=== PATIENT | male | born 1935 | race African-American/Black ===

== ENCOUNTER 2019-06-14 09:43 | Inpatient (IN) ==
[2019-06-14] MEDS ORDERED: ASPIRIN 325 MG TABLET PO STA (10:14)
[2019-06-14] MEDS ORDERED: NITROGLYCERIN SL 0.4 MG TABLET SL PRN ×2 (10:14→13:50)
[2019-06-14 10:51] LABS: Basophils % 0.2 % (0.0-0.8); Eosinophils # 0.1 10*3/uL (0.0-0.87); Eosinophils % 0.9 % (0.00-10.9); Hematocrit 52.4 VOL% (42.0-52.0); Hemoglobin 16.3 GM/DL (14.0-18.0); Immature Granulocytes % 0.4 %; Immature Granulocytes Absolute 0.05 #; Lymphocytes # 1.7 10*3/uL (1.4-4.0); Lymphocytes % 13.6 % (21.2-54.2); Mean Corpuscular HGB Conc 31.1 GM/DL (32-36); Mean Corpuscular Volume 92.7 FL (87-102); Monocytes % 10.9 % (1.7-12.7); Red Blood Count 5.65 MC/CUMM (3.8-5.5); Red Cell Distribution Width 13.7 % (9.3-17.3); White Blood Count 12.6 T/CUMM (4-12)
[2019-06-14 10:52] LABS: Platelet Count 91 T/CUMM (130-400)
[2019-06-14 11:05] LABS: Calcium 9.1 MG/DL (8.5-10.1); Osmolality,Calculated 282.7 MOS/KG (273-304)
[2019-06-14 11:16] LABS: Alanine Aminotransferase 32 U/L (16-61); Albumin 3.7 G/DL (3.4-5.0); Alkaline Phosphatase 98 U/L (45-117); Aspartate Amino Transferase 34 U/L (0-37); Bilirubin,Indirect 0.4 MG/DL (0.0-1.0); Total Protein 8.5 G/DL (6.4-8.3); Uric Acid 4.8 MG/DL (3.5-7.2)
[2019-06-14 11:31] LABS: Hypochromasia 1+; Microcytosis Slight; Platelet Estimate Decreased
[2019-06-14] MEDS ORDERED: GLUCAGON 1 MG VIAL IM PRN (14:35)
[2019-06-14] MEDS ORDERED: DEXTROSE 10% 250 ML BAG IV PRN (14:35)
[2019-06-14] MEDS ORDERED: INFLUENZA VIRUS VACCINE 0.5 ML SYRINGE IM ONE (16:04)
[2019-06-14] MEDS ORDERED: LINACLOTIDE 145 MCG CAPSULE PO SCH (16:30)
[2019-06-14] MEDS: INSULIN REGULAR 100 UNIT/ML SUBCUT SCH ×2 (16:41→21:01)
[2019-06-14] MEDS: ENOXAPARIN 80 MG/0.8 ML SYRINGE SUBCUT SCH (16:52)
[2019-06-14] MEDS ORDERED: SIMETHICONE CHEW 125 MG TABLET PO PRN (18:27)
[2019-06-14] MEDS ORDERED: ZALEPLON 5 MG CAPSULE PO PRN (18:27)
[2019-06-14] MEDS ORDERED: hydrALAZINE 20 MG/1 ML VIAL IV PRN (18:27)
[2019-06-14] MEDS ORDERED: ACETAMINOPHEN 325 MG TABLET PO PRN (18:27)
[2019-06-14] MEDS ORDERED: BISACODYL 5 MG TABLET PO PRN (18:27)
[2019-06-14] MEDS ORDERED: CALCIUM CARBONATE CHEW 500 MG TABLET PO PRN (18:27)
[2019-06-14] MEDS ORDERED: ONDANSETRON 4 MG/2 ML VIAL IV PRN (18:27)
[2019-06-14] MEDS ORDERED: LACTULOSE 20 GM/30 ML UDCUP PO PRN (18:27)
[2019-06-14] MEDS ORDERED: ALUMINUM/MAGNES/SIMETH MAX STR 30 ML UDCUP PO PRN (18:27)
[2019-06-14] MEDS ORDERED: traZODone 50 MG TABLET PO PRN (18:27)
[2019-06-14] MEDS: cilostazoL 100 MG TABLET PO SCH (21:00)
[2019-06-14] MEDS ORDERED: INSULIN GLARGINE 100 UNIT/ML SUBCUT SCH (21:00)
[2019-06-14] MEDS ORDERED: ROSUVASTATIN 20 MG TABLET PO SCH (21:00)
[2019-06-14] MEDS: DOCUSATE SODIUM 100 MG CAPSULE PO SCH (21:01)
[2019-06-14] MEDS: carvediloL 25 MG TABLET PO SCH (21:01)
[2019-06-14] MEDS: MORPHINE 4 MG/1 ML VIAL IV PRN (21:01)
[2019-06-15] MEDS: ENOXAPARIN 80 MG/0.8 ML SYRINGE SUBCUT SCH (03:09)
[2019-06-15] MEDS: MORPHINE 4 MG/1 ML VIAL IV PRN (04:23)
[2019-06-15 04:38] LABS: Amorphous Crystals,Urine Occasional /HPF (Few); Apearance,Urine CLEAR (Clear); Bacteria,Urine Occasional /HPF (Few); Bilirubin,Urine Negative (Negative); Blood, Urine Negative (Negative); Glucose,Urine (UA) 150 mg/dL (Negative); Ketones,Urine Negative (Negative); Mucus,Urine Occasional /LPF (Occasional); Nitrite,Urine Negative (Negative); Protein,Urine 100 MG/DL; RBC,Urine 1 /HPF (0-4); Squamous Epithelial Cell,Urine Occasional /HPF (0-10); Urine Color Yellow (Yellow); Urine Specific Gravity 1.021 (1.001-1.035); WBC,Urine 1 /HPF (0-6)
[2019-06-15 05:33] LABS: Basophils % 0.5 % (0.0-0.8); Eosinophils # 0.2 10*3/uL (0.0-0.87); Eosinophils % 3.4 % (0.00-10.9); Hematocrit 42.5 VOL% (42.0-52.0); Immature Granulocytes % 0.3 %; Immature Granulocytes Absolute 0.02 #; Lymphocytes # 0.9 10*3/uL (1.4-4.0); Lymphocytes % 14.5 % (21.2-54.2); Mean Corpuscular HGB Conc 32.5 GM/DL (32-36); Mean Corpuscular Volume 90.2 FL (87-102); Mean Platelet Volume 12.4 FL (9.6-12.0); Monocytes % 13.8 % (1.7-12.7); Neutrophils % 67.5 % (38.7-73.9); Red Blood Count 4.71 MC/CUMM (3.8-5.5); Red Cell Distribution Width 13.7 % (9.3-17.3)
[2019-06-15 05:34] LABS: Hemoglobin 13.8 GM/DL (14.0-18.0); White Blood Count 5.9 T/CUMM (4-12)
[2019-06-15 05:35] LABS: Platelet Count 66 T/CUMM (130-400)
[2019-06-15 05:52] LABS: Bilirubin,Total 1.1 MG/DL (0.2-1.0); Calcium 8.5 MG/DL (8.5-10.1); Osmolality,Calculated 283.7 MOS/KG (273-304); Risk Ratio 1.97; Thyroid Stimulating Hormone 3.59 uIU/ml (0.358-3.74); Total Protein 6.7 G/DL (6.4-8.3); VLDL CHOLESTEROL 12.6 MG/DL
[2019-06-15 06:46] LABS: Hypochromasia 1+; Microcytosis Slight; Platelet Estimate Decreased
[2019-06-15] MEDS ORDERED: PANTOPRAZOLE 40 MG TABLET PO SCH (09:00)
[2019-06-15] MEDS ORDERED: amLODIPine 5 MG TABLET PO SCH (09:00)
[2019-06-15] MEDS ORDERED: ASPIRIN 325 MG TABLET PO SCH (09:00)
[2019-06-15] MEDS ORDERED: CLOPIDOGREL 75 MG TABLET PO SCH (09:00)
[2019-06-15] MEDS: INSULIN REGULAR 100 UNIT/ML SUBCUT SCH ×2 (09:10→12:32)
[2019-06-15] MEDS: cilostazoL 100 MG TABLET PO SCH (09:12)
[2019-06-15] MEDS: carvediloL 25 MG TABLET PO SCH (09:13)
[2019-06-15] MEDS: DOCUSATE SODIUM 100 MG CAPSULE PO SCH (09:14)
[2019-06-15 12:03] VITALS: BP 122/68
[2019-06-15] MEDS ORDERED: APIXABAN 5 MG TABLET PO SCH (21:00)
== END 2019-06-15 12:38 | disposition home health service (06) | DRG 563 ==
LOC: N.ED 09:43 → N.EDINP 14:34 → N.3E 15:30
PROVIDERS: ADMIT Internal Medicine; ATTEND Internal Medicine

== ENCOUNTER 2021-10-14 12:32 | Inpatient (IN) ==
[2021-10-14 15:01] LABS: Basophils % 0.4 % (0.0-0.8); Eosinophils # 0.2 10*3/uL (0.0-0.87); Eosinophils % 3.1 % (0.00-10.9); Hematocrit 58.9 VOL% (42.0-52.0); Hemoglobin 18.8 GM/DL (14.0-18.0); Immature Granulocytes % 0.4 %; Immature Granulocytes Absolute 0.02 #; Lymphocytes # 1.6 10*3/uL (1.4-4.0); Lymphocytes % 29.4 % (21.2-54.2); Mean Corpuscular HGB Conc 31.9 GM/DL (32-36); Mean Corpuscular Volume 88.6 FL (87-102); Mean Platelet Volume 12.2 FL (9.6-12.0); Monocytes # 0.9 10*3/uL (0.11-0.8); Monocytes % 15.7 % (1.7-12.7); Platelet Count 123 T/CUMM (130-400); Red Blood Count 6.65 MC/CUMM (3.8-5.5); Red Cell Distribution Width 14.1 % (9.3-17.3); White Blood Count 5.4 T/CUMM (4-12)
[2021-10-14 15:16] LABS: Mucus,Urine Occasional /LPF (Occasional); RBC,Urine 1 /HPF (0-4); Squamous Epithelial Cell,Urine Occasional /HPF (0-10); Urine Appearance Clear (Clear); Urine Color Yellow (Yellow)
[2021-10-14 15:17] LABS: Glucose,Urine (UA) 250 mg/dL (Negative); Ketones,Urine 15 mg/dL (Negative); Nitrite,Urine Negative (Negative); Protein,Urine >=300 mg/dL (Negative); Urine Specific Gravity 1.028 (1.001-1.035)
[2021-10-14 15:21] LABS: Bilirubin,Urine Small mg/dL (Negative); Blood, Urine Trace mg/dL (Negative)
[2021-10-14] MEDS ORDERED: ONDANSETRON 4 MG/2 ML VIAL IV STA (15:24)
[2021-10-14] MEDS ORDERED: SODIUM CHLORIDE 0.9% 1,000 ML IV STA (15:24)
[2021-10-14 15:28] LABS: Albumin 3.4 G/DL (3.4-5.0); Calcium 9.7 MG/DL (8.5-10.1); Osmolality,Calculated 277.1 MOS/KG (273-304); Potassium 4.9 MMOL/L (3.5-5.1)
[2021-10-14] MEDS ORDERED: AZITHROMYCIN INJ 500 MG in SODIUM CHLORIDE 0.9% 250 ML IV STA (16:19)
[2021-10-14] MEDS ORDERED: MELATONIN 3 MG TABLET PO PRN (17:04)
[2021-10-14] MEDS ORDERED: DOCUSATE SODIUM 100 MG CAPSULE PO PRN (17:06)
[2021-10-14] MEDS ORDERED: ACETAMINOPHEN 325 MG TABLET PO PRN (17:06)
[2021-10-14] MEDS ORDERED: GLUCAGON 1 MG VIAL IM PRN (17:06)
[2021-10-14] MEDS ORDERED: DEXTROSE 10% 250 ML BAG IV PRN (17:12)
[2021-10-14] MEDS: SODIUM CHLORIDE 0.9% 1,000 ML IV SCH (18:07)
[2021-10-14 18:54] LABS: PT Patient Result 10.9 SECS (10.5-12.0)
[2021-10-14] MEDS: ASCORBIC ACID 500 MG TABLET PO SCH (21:14)
[2021-10-14] MEDS: FAMOTIDINE 20 MG TABLET PO SCH (21:15)
[2021-10-14] MEDS: INSULIN REGULAR 100 UNIT/ML SUBCUT SCH (21:46)
[2021-10-15 05:18] LABS: Basophils % 0.2 % (0.0-0.8); Eosinophils # 0.2 10*3/uL (0.0-0.87); Hematocrit 48.9 VOL% (42.0-52.0); Hemoglobin 15.6 GM/DL (14.0-18.0); Immature Granulocytes % 0.2 %; Immature Granulocytes Absolute 0.01 #; Lymphocytes # 1.3 10*3/uL (1.4-4.0); Lymphocytes % 30.4 % (21.2-54.2); Mean Corpuscular HGB Conc 31.9 GM/DL (32-36); Mean Corpuscular Volume 88.7 FL (87-102); Mean Platelet Volume 11.8 FL (9.6-12.0); Monocytes # 0.6 10*3/uL (0.11-0.8); Monocytes % 13.9 % (1.7-12.7); Neutrophils % 50.3 % (38.7-73.9); Platelet Count 112 T/CUMM (130-400); Red Blood Count 5.51 MC/CUMM (3.8-5.5); Red Cell Distribution Width 13.3 % (9.3-17.3); White Blood Count 4.4 T/CUMM (4-12)
[2021-10-15 05:43] LABS: Albumin 2.6 G/DL (3.4-5.0); Bilirubin,Total 0.7 MG/DL (0.20-1.00); Calcium 8.3 MG/DL (8.5-10.1); Ferritin 196.4 ng/mL (26-388); Osmolality,Calculated 289.1 MOS/KG (273-304); Potassium 4.4 MMOL/L (3.5-5.1); Total Protein 6.8 G/DL (6.4-8.2)
[2021-10-15 05:50] LABS: Thyroid Stimulating Hormone 1.47 uIU/ml (0.358-3.74)
[2021-10-15] MEDS: SODIUM CHLORIDE 0.9% 1,000 ML IV SCH ×3 (06:00→22:34)
[2021-10-15 06:35] LABS: Sedimentation Rate-Westergren 16 MM/HR (0-20)
[2021-10-15] MEDS ORDERED: REMDESIVIR 100 MG in SODIUM CHLORIDE 0.9% 100 ML IV SCH (08:30)
[2021-10-15] MEDS ORDERED: REMDESIVIR 200 MG in SODIUM CHLORIDE 0.9% 210 ML IV ONE (09:00)
[2021-10-15] MEDS: AZITHROMYCIN 250 MG TABLET PO SCH (09:11)
[2021-10-15] MEDS: ASCORBIC ACID 500 MG TABLET PO SCH ×2 (09:12→22:28)
[2021-10-15] MEDS: CHOLECALCIFEROL 1,000 UNIT TABLET PO SCH (09:12)
[2021-10-15] MEDS: ZINC GLUCONATE 50 MG TABLET PO SCH (09:12)
[2021-10-15] MEDS: FAMOTIDINE 20 MG TABLET PO SCH ×2 (09:12→22:25)
[2021-10-15] MEDS: INSULIN REGULAR 100 UNIT/ML SUBCUT SCH ×4 (09:14→22:26)
[2021-10-15] MEDS ORDERED: GABAPENTIN 300 MG CAPSULE PO PRN (11:39)
[2021-10-15] MEDS: LINACLOTIDE 145 MCG CAPSULE PO SCH (17:25)
[2021-10-15] MEDS: carvediloL 25 MG TABLET PO SCH (22:25)
[2021-10-15] MEDS: ROSUVASTATIN 20 MG TABLET PO SCH (22:26)
[2021-10-16 05:29] LABS: Basophils % 0.4 % (0.0-0.8); Eosinophils # 0.3 10*3/uL (0.0-0.87); Eosinophils % 5.7 % (0.00-10.9); Hematocrit 48.3 VOL% (42.0-52.0); Hemoglobin 15.5 GM/DL (14.0-18.0); Immature Granulocytes % 0.4 %; Immature Granulocytes Absolute 0.02 #; Lymphocytes # 1.2 10*3/uL (1.4-4.0); Lymphocytes % 24.6 % (21.2-54.2); Mean Corpuscular HGB Conc 32.1 GM/DL (32-36); Mean Platelet Volume 11.6 FL (9.6-12.0); Monocytes # 0.7 10*3/uL (0.11-0.8); Monocytes % 14.3 % (1.7-12.7); Neutrophils % 54.6 % (38.7-73.9); Platelet Count 118 T/CUMM (130-400); Red Blood Count 5.49 MC/CUMM (3.8-5.5); Red Cell Distribution Width 13.2 % (9.3-17.3)
[2021-10-16 05:55] LABS: Albumin 2.5 G/DL (3.4-5.0); Bilirubin,Total 0.6 MG/DL (0.20-1.00); Calcium 8.2 MG/DL (8.5-10.1); Ferritin 181.4 ng/mL (26-388); Osmolality,Calculated 285.3 MOS/KG (273-304); Potassium 4.3 MMOL/L (3.5-5.1); Total Protein 6.5 G/DL (6.4-8.2)
[2021-10-16 06:46] LABS: Sedimentation Rate-Westergren 16 MM/HR (0-20)
[2021-10-16] MEDS: INSULIN REGULAR 100 UNIT/ML SUBCUT SCH ×4 (09:46→21:59)
[2021-10-16] MEDS: ZINC GLUCONATE 50 MG TABLET PO SCH (09:47)
[2021-10-16] MEDS: FAMOTIDINE 20 MG TABLET PO SCH ×2 (09:47→21:41)
[2021-10-16] MEDS: DAPAGLIFLOZIN 5 MG TABLET PO SCH (09:47)
[2021-10-16] MEDS: carvediloL 25 MG TABLET PO SCH ×2 (09:47→21:41)
[2021-10-16] MEDS: CHOLECALCIFEROL 1,000 UNIT TABLET PO SCH (09:47)
[2021-10-16] MEDS: amLODIPine 10 MG TABLET PO SCH (09:47)
[2021-10-16] MEDS: REMDESIVIR 100 MG in SODIUM CHLORIDE 0.9% 100 ML IV SCH (09:48)
[2021-10-16] MEDS: ASCORBIC ACID 500 MG TABLET PO SCH ×2 (09:48→21:41)
[2021-10-16] MEDS: AZITHROMYCIN 250 MG TABLET PO SCH (09:48)
[2021-10-16] MEDS: SODIUM CHLORIDE 0.9% 1,000 ML IV SCH (10:58)
[2021-10-16] MEDS: LINACLOTIDE 145 MCG CAPSULE PO SCH (17:11)
[2021-10-16] MEDS: ROSUVASTATIN 20 MG TABLET PO SCH (21:41)
[2021-10-17 05:22] LABS: Basophils % 0.3 % (0.0-0.8); Eosinophils # 0.3 10*3/uL (0.0-0.87); Eosinophils % 5.6 % (0.00-10.9); Hematocrit 51.7 VOL% (42.0-52.0); Hemoglobin 16.2 GM/DL (14.0-18.0); Immature Granulocytes % 0.3 %; Immature Granulocytes Absolute 0.02 #; Lymphocytes # 1.2 10*3/uL (1.4-4.0); Lymphocytes % 20.5 % (21.2-54.2); Mean Corpuscular HGB Conc 31.3 GM/DL (32-36); Mean Corpuscular Volume 87.6 FL (87-102); Mean Platelet Volume 11.8 FL (9.6-12.0); Monocytes # 0.9 10*3/uL (0.11-0.8); Monocytes % 15.2 % (1.7-12.7); Neutrophils % 58.1 % (38.7-73.9); Platelet Count 133 T/CUMM (130-400); Red Cell Distribution Width 13.2 % (9.3-17.3)
[2021-10-17 05:37] LABS: Calcium 9.1 MG/DL (8.5-10.1); Osmolality,Calculated 276.5 MOS/KG (273-304); Potassium 4.2 MMOL/L (3.5-5.1)
[2021-10-17] MEDS: SODIUM CHLORIDE 0.9% 1,000 ML IV SCH (06:05)
[2021-10-17] MEDS: INSULIN REGULAR 100 UNIT/ML SUBCUT SCH ×4 (07:07→21:47)
[2021-10-17] MEDS: FAMOTIDINE 20 MG TABLET PO SCH ×2 (09:52→21:47)
[2021-10-17] MEDS: ZINC GLUCONATE 50 MG TABLET PO SCH (09:52)
[2021-10-17] MEDS: amLODIPine 10 MG TABLET PO SCH (09:52)
[2021-10-17] MEDS: ASCORBIC ACID 500 MG TABLET PO SCH ×2 (09:52→21:46)
[2021-10-17] MEDS: DAPAGLIFLOZIN 5 MG TABLET PO SCH (09:53)
[2021-10-17] MEDS: AZITHROMYCIN 250 MG TABLET PO SCH (09:53)
[2021-10-17] MEDS: carvediloL 25 MG TABLET PO SCH ×2 (09:53→21:47)
[2021-10-17] MEDS: CHOLECALCIFEROL 1,000 UNIT TABLET PO SCH (09:53)
[2021-10-17] MEDS: REMDESIVIR 100 MG in SODIUM CHLORIDE 0.9% 100 ML IV SCH (09:57)
[2021-10-17] MEDS ORDERED: MAGNESIUM SULF RIDER 2 GM/50 ML PREMIX IV PRN (15:36)
[2021-10-17] MEDS ORDERED: MAGNESIUM SULF RIDER 4 GM/100 ML PREMIX IV PRN (15:36)
[2021-10-17] MEDS: LINACLOTIDE 145 MCG CAPSULE PO SCH (17:18)
[2021-10-17] MEDS: ROSUVASTATIN 20 MG TABLET PO SCH (21:47)
[2021-10-18 06:28] LABS: Basophils % 0.5 % (0.0-0.8); Eosinophils # 0.3 10*3/uL (0.0-0.87); Eosinophils % 5.3 % (0.00-10.9); Hematocrit 51.6 VOL% (42.0-52.0); Hemoglobin 16.9 GM/DL (14.0-18.0); Immature Granulocytes % 0.5 %; Immature Granulocytes Absolute 0.03 #; Lymphocytes # 1.2 10*3/uL (1.4-4.0); Lymphocytes % 21.8 % (21.2-54.2); Mean Corpuscular HGB Conc 32.8 GM/DL (32-36); Mean Corpuscular Volume 87.2 FL (87-102); Monocytes # 0.8 10*3/uL (0.11-0.8); Monocytes % 13.7 % (1.7-12.7); Neutrophils % 58.2 % (38.7-73.9); Platelet Count 139 T/CUMM (130-400); Red Blood Count 5.92 MC/CUMM (3.8-5.5); Red Cell Distribution Width 13.2 % (9.3-17.3); White Blood Count 5.7 T/CUMM (4-12)
[2021-10-18 06:47] LABS: Osmolality,Calculated 279.4 MOS/KG (273-304); Potassium 4.4 MMOL/L (3.5-5.1)
[2021-10-18] MEDS: INSULIN REGULAR 100 UNIT/ML SUBCUT SCH ×4 (08:19→21:53)
[2021-10-18] MEDS: FAMOTIDINE 20 MG TABLET PO SCH ×2 (08:20→21:52)
[2021-10-18] MEDS: DAPAGLIFLOZIN 5 MG TABLET PO SCH (08:20)
[2021-10-18] MEDS: ASCORBIC ACID 500 MG TABLET PO SCH ×2 (08:20→21:52)
[2021-10-18] MEDS: ZINC GLUCONATE 50 MG TABLET PO SCH (08:20)
[2021-10-18] MEDS: amLODIPine 10 MG TABLET PO SCH (08:21)
[2021-10-18] MEDS: carvediloL 25 MG TABLET PO SCH ×2 (08:21→17:40)
[2021-10-18] MEDS: AZITHROMYCIN 250 MG TABLET PO SCH (08:21)
[2021-10-18] MEDS: CHOLECALCIFEROL 1,000 UNIT TABLET PO SCH (08:27)
[2021-10-18] MEDS: SODIUM CHLORIDE 0.9% 1,000 ML IV SCH (15:01)
[2021-10-18] MEDS: LINACLOTIDE 145 MCG CAPSULE PO SCH (17:40)
[2021-10-18] MEDS: ROSUVASTATIN 20 MG TABLET PO SCH (21:52)
[2021-10-19 04:13] LABS: Basophils % 0.5 % (0.0-0.8); Eosinophils # 0.4 10*3/uL (0.0-0.87); Eosinophils % 5.7 % (0.00-10.9); Hemoglobin 15.1 GM/DL (14.0-18.0); Immature Granulocytes % 0.3 %; Immature Granulocytes Absolute 0.02 #; Lymphocytes # 1.5 10*3/uL (1.4-4.0); Lymphocytes % 24.9 % (21.2-54.2); Mean Corpuscular HGB Conc 32.8 GM/DL (32-36); Mean Corpuscular Volume 86.8 FL (87-102); Mean Platelet Volume 12.4 FL (9.6-12.0); Monocytes % 16.4 % (1.7-12.7); Neutrophils % 52.2 % (38.7-73.9); Platelet Count 146 T/CUMM (130-400); Red Cell Distribution Width 13.2 % (9.3-17.3); White Blood Count 6.1 T/CUMM (4-12)
[2021-10-19 04:38] LABS: Calcium 8.7 MG/DL (8.5-10.1); Eosinophils 8 % (0-10); Lymphocytes 21 % (20-55); Osmolality,Calculated 283.3 MOS/KG (273-304); Platelet Estimate Adequate; Potassium 3.8 MMOL/L (3.5-5.1); Total Cells Counted 100
[2021-10-19 07:54] VITALS: BP 145/63
[2021-10-19] MEDS: DAPAGLIFLOZIN 5 MG TABLET PO SCH (09:01)
[2021-10-19] MEDS: amLODIPine 10 MG TABLET PO SCH (09:01)
[2021-10-19] MEDS: ZINC GLUCONATE 50 MG TABLET PO SCH (09:02)
[2021-10-19] MEDS: FAMOTIDINE 20 MG TABLET PO SCH (09:02)
[2021-10-19] MEDS: CHOLECALCIFEROL 1,000 UNIT TABLET PO SCH (09:02)
[2021-10-19] MEDS: ASCORBIC ACID 500 MG TABLET PO SCH (09:02)
[2021-10-19] MEDS: carvediloL 25 MG TABLET PO SCH (09:02)
[2021-10-19] MEDS: INSULIN REGULAR 100 UNIT/ML SUBCUT SCH (09:02)
== END 2021-10-19 11:35 | disposition home health service (06) | DRG 177 ==
LOC: N.3E 12:32 → N.ED 12:32 → SUATTDRO 17:06 → OBSVTOIN 17:06 → N.3E 20:45 → SUATTDRO 10-16 12:29
PROVIDERS: ADMIT Family Medicine; ATTEND Internal Medicine